=== PATIENT | female | born 1990 | race Caucasian/White ===

== ENCOUNTER 2017-03-14 23:53 | Inpatient (IN) | payer OTHER ==
[~2017-03-14] VITALS: Ht 157.5 cm; Wt 59.9 kg
[2017-03-15 00:16] VITALS: BP 119/76
[2017-03-15] MEDS ORDERED: OXYTOCIN 30 UNITS/LACT RINGERS 500 ML IV ONE (00:57)
[2017-03-15] MEDS ORDERED: RINGERS SOLUTION,LACTATED 1,000 ML IV SCH (00:57)
[2017-03-15] MEDS ORDERED: RINGERS SOLUTION,LACTATED 1,000 ML IV PRN (00:57)
[2017-03-15] MEDS ORDERED: MISOPROSTOL 25 MCG TABLET VG ONE (01:00)
[2017-03-15] MEDS ORDERED: LIDOCAINE HCL/PF 1% 30 ML VIAL INJ PRN (01:00)
[2017-03-15] MEDS ORDERED: FentaNYL CITRATE-PF 100 MCG/2 ML VIAL IVP PRN (01:00)
[2017-03-15] MEDS ORDERED: CARBOPROST TROMETHAMINE 250 MCG/ML AMP IM PRN (01:00)
[2017-03-15] MEDS ORDERED: METHYLERGONOVINE MALEATE 0.2 MG/ML VIAL IM PRN ×2 (01:00→10:30)
[2017-03-15] MEDS ORDERED: TERBUTALINE SULFATE 1 MG/ML VIAL SQ PRN (01:00)
[2017-03-15] MEDS ORDERED: INFLUENZA VIRUS VACCINE QVS 2017-18 (3YR+)/PF 60 MCG/0.5 ML SYRINGE IM ONE (02:15)
[2017-03-15] MEDS: RINGERS SOLUTION,LACTATED 1,000 ML IV SCH ×2 (02:25→11:54)
[2017-03-15 02:52] LABS: BASOPHILS % (AUTO) 0.3 % (0.0-2.0); EOSINOPHILS % (AUTO) 0.2 % (1.0-6.0); HEMOGLOBIN 12.6 g/dL (12.0-16.0); LYMPHOCYTES # (AUTO) 2.2 K/uL (1.0-4.8); LYMPHOCYTES % (AUTO) 16.4 % (22.0-44.0); MEAN CORPUSCULAR HEMOGLOBIN 35.7 pg (26.0-34.0); MEAN CORPUSCULAR HGB CONC 34.9 G/dL (31.0-37.0); MEAN CORPUSCULAR VOLUME 102 fL (80-100); MONOCYTES # (AUTO) 0.6 K/uL (0.1-1.0); MONOCYTES % (AUTO) 4.5 % (2.0-9.0); NEUTROPHILS # (AUTO) 10.6 K/uL (1.8-7.7); NEUTROPHILS % (AUTO) 78.6 % (40.0-70.0); RED BLOOD CELL COUNT(AUTO) 3.53 MIL/uL (4.00-5.20); RED CELL DISTRIBUTION WIDTH 12.6 % (11.5-14.5); WHITE BLOOD COUNT (AUTO) 13.5 K/uL (4.5-11.0)
[2017-03-15 03:31] LABS: RBC MORPHOLOGY COMMENT ABNORMAL RBC MORPH
[2017-03-15] MEDS ORDERED: FentaNYL/BUPIV 0.125%/NS/PF 200 ML ED ONE (03:55)
[2017-03-15] MEDS ORDERED: BUPIVACAINE HCL/PF 0.25% 30 ML VIAL ONE (03:56)
[2017-03-15] MEDS ORDERED: FentaNYL/BUPIV 0.125%/NS/PF 200 ML ED PRN (04:35)
[2017-03-15] MEDS ORDERED: ONDANSETRON HCL 4 MG/2 ML VIAL IVP PRN (04:45)
[2017-03-15] MEDS ORDERED: DiphenhydrAMINE HCL 50 MG/ML VIAL IVP PRN (04:45)
[2017-03-15] MEDS: IBUPROFEN 800 MG TABLET PO SCH ×3 (06:35→20:54)
[2017-03-15] MEDS ORDERED: OXYGEN THERAPY IH SCH (08:00)
[2017-03-15] MEDS ORDERED: LANOLIN 7 GM OINTMENT TP PRN (11:30)
[2017-03-15] MEDS ORDERED: GLYCERIN/WITCH HAZEL LEAF 40 PADS JAR TP PRN (11:30)
[2017-03-15] MEDS ORDERED: BENZOCAINE 20%/MENTHOL 56 GM SPRAY CANISTER TP PRN (11:30)
[2017-03-15] MEDS ORDERED: ACETAMINOPHEN/CODEINE 300-30 MG TABLET PO PRN ×2 (11:30)
[2017-03-15] MEDS: MAGNESIUM HYDROXIDE SUSPENSION 30 ML UDCUP PO SCH (20:55)
[2017-03-16] MEDS: IBUPROFEN 800 MG TABLET PO SCH ×2 (06:42→12:21)
[2017-03-16] MEDS: MAGNESIUM HYDROXIDE SUSPENSION 30 ML UDCUP PO SCH (09:00)
[2017-03-16] MEDS ORDERED: IBUP-2070 PO (13:23)
== END 2017-03-16 14:50 | disposition home or self-care (01) | DRG 775 ==
LOC: 4S 23:53 → OBSVTOIN 23:53
PROVIDERS: ADMIT Obstetrics & Gynecology; ATTEND Obstetrics & Gynecology
PROC: 10E0XZZ Delivery of Products of Conception, External Approach (ICD-10-PCS; principal; 2017-03-15)
PROC: 3E0S3BZ Introduction of Anesthetic Agent into Epidural Space, Percutaneous Approach (ICD-10-PCS; 2017-03-15)
PROC: 00HU33Z Insertion of Infusion Device into Spinal Canal, Percutaneous Approach (ICD-10-PCS; 2017-03-15)
DX: O75.89 Other specified complications of labor and delivery (principal); Z28.21 Immunization not carried out because of patient refusal; Z37.0 Single live birth; Z3A.38 38 weeks gestation of pregnancy
CPT/HCPCS: 86850; 86900; 86901; 89060; J2210; J2405; J2590; J3490; J7120